=== PATIENT | male | born 1970 | race Caucasian/White ===

== ENCOUNTER 2019-08-03 18:18 | Emergency (ER) | payer MEDICAID, SELFPAY ==
[2019-08-03 18:18] VITALS: BP 143/65; PULSE 74; RESP 16; TEMP 36.3
[2019-08-03 18:19] VITALS: BP 143/65; PULSE 74; RESP 16; TEMP 36.1; BMI 31.6
[2019-08-03 20:00] VITALS: RESP 14; O2SAT 100
[2019-08-03] MEDS: Cephalexin 250 MG Capsule 500 MG PO (20:02)
[2019-08-03] MEDS: BACITRACIN 15 GM Tube 1 APPLIC TOPICAL (20:02)
--- NOTE | 2019-08-03 20:11 | ED.VISSUMM ---
- ER Visit Summary Date of Service: 08/03/19 Chief Complaint: Right thumb laceration History of Present Illness: The patient is a 48 M who presents with right thumb laceration that occurred today. Patient was using a knife to cut a wire when it slipped and he cut his right thumb. Patient denies any paresthesias or weakness. Patient is unsure of his last tetanus. Patient states the bleeding was persistent. Patient denies any foreign bodies in the wound. Patient does not think he cut anything other than skin. Physical Examination: Vital signs are stable. Patient is afebrile. Patient is in no acute distress. Skin is warm and dry. There is a 4 cm full-thickness curvilinear laceration over the dorsal aspect of the right thumb. There is moderate gapping of the wound margins. There are no foreign bodies noted. Strength is 5/5 in extension of the IP and MP joints of the right thumb. Sensation was intact light touch in all digits. Capillary refill was less than 2 seconds in all digits. There were no tendon lacerations visualized. Emergency Department Course and Treatment: Patient was given a dose of Keflex here. Patient was given a tetanus booster. The wound was cleaned and irrigated with copious amounts of normal saline. The wound was anesthetized with 1% plain lidocaine locally. The wound was closed with 5 simple interrupted #4 -0 nylon sutures under sterile technique. Patient tolerated the procedure well. Bacitracin dressing was applied. Patient was given wound care instructions. Patient was instructed to keep the wound clean and dry. Patient was given a prescription for Keflex. Patient was instructed to follow-up with his primary care physician in 5 to 7 days for wound recheck and suture removal. Patient understood and was agreeable with the plan. All questions were answered. Disposition: Discharge home Impression: Right thumb laceration This note was generated with [employer] dictation software. It may contain incorrect words, spelling, and punctuation that were not noted in review of the chart prior to signing ED Disposition - Plan for ED Patient: Disposition: Home or Assisted Living Diagnosis: Laceration of right thumb Instructions: ED Laceration Hand Prescriptions: Cephalexin [Keflex] 500 mg PO Q6 #40 cap Prescription Printed Referrals: Eren Briscoe MD [STAFF PHYSICIAN] - 7 Days for suture removal
[2019-08-03] MEDS: Diphth,Pertuss(Acell),Tet Vac 0.5 ML Vial IM (20:38)
[2019-08-03 21:51] VITALS: BP 139/91; PULSE 65; RESP 15; O2SAT 99
[2019-08-03 23:15] VITALS: BP 139/91; PULSE 65; RESP 15; O2SAT 99
--- NOTE | 2019-08-04 09:06 | ED.RN ---
Called RX for keflex in to paul ochoa at [phone] on 08/04/19
== END 2019-08-03 23:00 | disposition home or self-care (01) ==
PROVIDERS: Emergency Provider Emergency Medicine; PCP Family Medicine
DX: S61.011A Laceration without foreign body of right thumb without damage to nail, initial encounter (principal); Z23 Encounter for immunization; W26.0XXA Contact with knife, initial encounter; Y93.9 Activity, unspecified; Y92.9 Unspecified place or not applicable; Y99.9 Unspecified external cause status; Z95.0 Presence of cardiac pacemaker
CPT/HCPCS: 12002; 90471; 90715; 94760; 99284